=== PATIENT | male | born 1985 | race Caucasian/White ===

== ENCOUNTER 2018-01-29 08:23 | Emergency (ER) | payer SELFPAY ==
[2018-01-29 08:34] VITALS: BP 120/81
--- NOTE | 2018-01-29 08:38 | UC ---
Upper Extremity HPI - HPI Summary HPI Summary: 33 y/o male presents to Urgent Care c/o acute on chronic L wrist swelling with severe pain, worse this morning when the pt woke up. Pain aggravated with movement. Pain rated 8/10 in severity. Pt states the swelling has come and gone intermittently for the past few years. 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 This is scribe Ed Jeny documenting for attending Dr. Junior Agudelo. I, Dr. Painter, personally performed the services described in this documentation as scribed in my presence and it is both accurate and complete. - History of Current Complaint Chief Complaint: UCUpperExtremity Stated Complaint: L WRIST PAIN Hx Obtained From: Patient Onset/Duration: Sudden Onset, Lasting Hours, Still Present Pain Intensity: 8 Pain Scale Used: 0-10 Numeric Location Of Pain: Is Discrete @ - L wrist Aggravating Factor(s): Movement Alleviating Factor(s): Nothing Associated Signs And Symptoms: Positive: Swelling - Allergies/Home Medications Allergies/Adverse Reactions: Allergies Allergy/AdvReac Type Severity Reaction Status Date / Time No Known Allergies Allergy Verified 01/29/18 08:34 Home Medications: Home Medications NK [No Home Medications Reported] 01/29/18 [History Confirmed 01/29/18] PMH/Surg Hx/FS Hx/Imm Hx Previously Healthy: Yes Endocrine History: Other Other Endocrine History: Negative: DM Cardiovascular History: Other Other Cardiovascular History: Negative: MT - Surgical History Surgical History: None - Family History Known Family History: Positive: None - Social History Occupation: Employed Full-time Alcohol Use: None Substance Use Type: Marijuana Smoking Status (MU): Never Smoked Tobacco Review of Systems Constitutional: Negative Skin: Negative Eyes: Negative ENT: Negative Respiratory: Negative Cardiovascular: Negative Gastrointestinal: Negative Genitourinary: Negative Motor: Negative Neurovascular: Negative Musculoskeletal: Edema - with pain at L wrist Neurological: Negative Psychological: Negative All Other Systems Reviewed And Are Negative: Yes Physical Exam Triage Information Reviewed: Yes Appearance: Well-Appearing, No Pain Distress Vital Signs: Initial Vital Signs Temp 97.9 F 01/29/18 08:30 Pulse 69 01/29/18 08:30 Resp 16 01/29/18 08:30 BP 120/81 01/29/18 08:30 Pulse Ox 99 01/29/18 08:30 Vital Signs Reviewed: Yes ENT: Positive: Normal ENT inspection Neck: Positive: Supple, Nontender Respiratory: Positive: Lungs clear, Normal breath sounds Cardiovascular: Positive: RRR Abdomen Description: Positive: Nontender, Soft Bowel Sounds: Positive: Present Musculoskeletal: Positive: Strength Intact, ROM Intact, Edema @ - At the dorsum of the L wrist there is a subcutaneous swelling; it is rubbery in texture and mobile. It moves with the movement of the tendon. No erythema. TTP. Strength 5/ 5. No neurovascular deficits. Neurological: Positive: Alert Psychological: Positive: Age Appropriate Behavior Skin Exam: Normal Diagnostics - Radiology Wrist XR Radiology Interpretation Completed By: Radiologist - SOFT TISSUE SWELLING DORSAL TO THE CARPAL BONES. Re-Evaluation - Re-Evaluation 1 Re-Evaluation Time: 09:30 Comment: discuss XR results, plan of care Upper Extremity Course/Dx - Course Course Of Treatment: DISCUSSED X-RAY RESULTS WITH THE PATIENT. F/U ORTHOPEDICS. - Differential Dx/Diagnosis Provider Diagnoses: LEFT WRIST GANGLION CYST Discharge - Sign-Out/Discharge Documenting (check all that apply): Patient Departure - Discharge Plan Condition: Stable Disposition: HOME Patient Education Materials: Ganglion Cysts (ED), Ganglion Cyst Removal (DC) Forms: *Work Release Referrals: [facility] [Outside] [facility] [Outside] Kyra Fair MD [Medical Doctor] - Additional Instructions: FOLLOW UP WITH DR FAIR, ORTHOPEDICS. GET RECHECKED FOR ANY WORSENING OF YOUR CONDITION OR QUESTIONS OR CONCERNS. - Billing Disposition and Condition Condition: STABLE Disposition: Home
[2018-01-29] MEDS ORDERED: Ibuprofen TAB* 600 MG PO ONE (08:41)
--- NOTE | 2018-01-29 09:09 | RAD ---
INDICATION: Left wrist pain and swelling. TECHNIQUE: 3 views of the left wrist were obtained. FINDINGS: There is soft tissue swelling dorsal to the carpal bones. The bones are in normal alignment. No fracture is seen. Joint spaces appear maintained. IMPRESSION: SOFT TISSUE SWELLING DORSAL TO THE CARPAL BONES.
== END 2018-01-29 09:45 | disposition home or self-care (01) ==
LOC: UCEAST 08:23
DX: M67.432 Ganglion, left wrist (principal)
CPT/HCPCS: 99202; A9270-GY; G0463

== ENCOUNTER 2019-09-02 16:12 | Emergency (ER) | payer OTHER ==
[2019-09-02 17:09] VITALS: BP 132/78
== END 2019-09-02 17:30 | disposition home or self-care (01) ==
LOC: UCEAST 16:12

== ENCOUNTER 2020-02-21 14:57 | Inpatient (IN) ==
[2020-02-21 16:55] LABS: ABS Eosinophils 0.1 10^3/ul (0-0.6); ABS Lymphocytes 1.1 10^3/ul (1.0-4.8); ABS Monocytes 0.9 10^3/ul (0-0.8); ABS Neutrophils 9.8 10^3/ul (1.5-7.7); Eosinophil % 1.1 %; Hematocrit 48 % (42-52); Hemoglobin 16.1 g/dL (14.0-18.0); Mean Corpuscular HGB Conc 34 g/dL (31-36); Mean Corpuscular Hemoglobin 29 pg (27-31); Mean Corpuscular Volume 85 fL (80-94); Mean Platelet Volume 9.3 fL (7.4-10.4); Platelet Count 218 10^3/uL (150-450); Red Blood Count 5.59 10^6 /uL (4.18-5.48); Red Cell Distribution Width 14 % (10-15)
[2020-02-21 17:08] LABS: ALT 56 U/L (7-52); AST 36 U/L (13-39); Albumin 4.3 g/dL (3.2-5.2); Albumin/Globulin Ratio 1.4 (1-3); Alkaline Phosphatase 82 U/L (34-104); Anion Gap 9 mmol/L (2-11); BUN/Creatinine Ratio 17.8 (8-20); Blood Urea Nitrogen 19 mg/dL (6-24); C Reactive Protein 17.25 mg/L (<8.01); CO2 Carbon Dioxide 21 mmol/L (22-32); Calcium 9.3 mg/dL (8.6-10.3); Chloride 105 mmol/L (101-111); EGFR African American 96.3 (>60); EGFR Non-African American 79.6 (>60); Globulin 3.1 g/dL (2-4); Glucose 113 mg/dL (70-100); Lipase < 10 U/L (11.0-82.0); Potassium 4.2 mmol/L (3.5-5.0); Sodium 135 mmol/L (135-145); Total Protein 7.4 g/dL (6.4-8.9)
[2020-02-21 17:15] LABS: Troponin I 0.15 ng/mL (<0.03)
[2020-02-21] MEDS ORDERED: Iohexol 300 (CONTRAST) 10 ML SDV IV ONE (18:02)
[2020-02-21] MEDS ORDERED: Iohexol 350 (CONTRAST) 500 ML MDV IV ONE (19:01)
[2020-02-21 20:05] LABS: Troponin I 0.16 ng/mL (<0.03)
[2020-02-21] MEDS ORDERED: HYDROmorphone 1 MG/1 ML SYRINGE IV SLOW PU ONE (20:39)
[2020-02-21 20:57] LABS: Urine Appearance Clear; Urine Bilirubin Negative (Negative); Urine Blood 1+ (Negative); Urine Color Yellow; Urine Glucose Negative (Negative); Urine Ketones 1+ (Negative); Urine Nitrite Negative (Negative); Urine Protein 2+(100 mg/dL) (Negative); Urine Specific Gravity 1.058 (1.010-1.030); Urine Urobilinogen Negative (Negative)
[2020-02-21 21:02] LABS: Urine Bacteria Absent (Absent); Urine Red Blood Cell 2+(6-10/hpf) (Absent); Urine Squamous Epithelial Cell Present (Absent); Urine White Blood Cell 1+(6-10/hpf) (Absent)
[2020-02-21 21:02] LABS: INR 1.12 (0.82-1.09)
[2020-02-21] MEDS: Heparin 5000 UNITS/ML 1 mL VIAL IV SCH (21:13)
[2020-02-21] MEDS: Heparin DRIP 25,000 UNITS BAG 25,000 UNITS/500 ML BAG IV SCH (21:18)
[2020-02-21] MEDS ORDERED: Morphine 2 MG/ML SYRINGE IV PRN (22:01)
[2020-02-21 22:05] LABS: ABS Basophils 0.1 10^3/ul (0-0.2); ABS Eosinophils 0.2 10^3/ul (0-0.6); ABS Lymphocytes 1.1 10^3/ul (1.0-4.8); ABS Monocytes 1.2 10^3/ul (0-0.8); ABS Neutrophils 10.9 10^3/ul (1.5-7.7); Eosinophil % 1.8 %; Hematocrit 46 % (42-52); Hemoglobin 15.4 g/dL (14.0-18.0); Lymphocyte % 8.4 %; Mean Corpuscular HGB Conc 34 g/dL (31-36); Mean Corpuscular Hemoglobin 28 pg (27-31); Mean Corpuscular Volume 85 fL (80-94); Mean Platelet Volume 8.9 fL (7.4-10.4); Nucleated Red Blood Cells % 0.1; Platelet Count 213 10^3/uL (150-450); Red Blood Count 5.42 10^6 /uL (4.18-5.48); Red Cell Distribution Width 14 % (10-15); White Blood Count 13.5 10^3/uL (3.5-10.8)
[2020-02-21] MEDS ORDERED: NS 0.9% 1000 ml BAG 1,000 ML IV SCH (22:15)
[2020-02-21 22:32] LABS: Blood Urea Nitrogen 15 mg/dL (6-24); EGFR African American 111.8 (>60); EGFR Non-African American 92.4 (>60)
[2020-02-22 00:35] LABS: Troponin I 0.15 ng/mL (<0.03)
[2020-02-22] MEDS: oxyCODONE/Acetamin 5/325 mg TAB PO PRN ×2 (01:26→08:41)
[2020-02-22] MEDS ORDERED: HYDROmorphone 1 MG/1 ML SYRINGE IV SLOW PU PRN (01:27)
[2020-02-22] MEDS ORDERED: HYDROmorphone 1 MG/1 ML SYRINGE ONE (01:31)
[2020-02-22 05:56] LABS: ABS Basophils 0.1 10^3/ul (0-0.2); ABS Eosinophils 0.3 10^3/ul (0-0.6); ABS Lymphocytes 1.1 10^3/ul (1.0-4.8); Eosinophil % 2.2 %; Hematocrit 44 % (42-52); Hemoglobin 14.7 g/dL (14.0-18.0); Lymphocyte % 9.8 %; Mean Corpuscular HGB Conc 34 g/dL (31-36); Mean Corpuscular Hemoglobin 29 pg (27-31); Mean Corpuscular Volume 86 fL (80-94); Mean Platelet Volume 8.9 fL (7.4-10.4); Nucleated Red Blood Cells % 0.1; Platelet Count 199 10^3/uL (150-450); Red Cell Distribution Width 14 % (10-15); White Blood Count 11.5 10^3/uL (3.5-10.8)
[2020-02-22 06:16] LABS: BUN/Creatinine Ratio 12.7 (8-20); EGFR African American 93.3 (>60); EGFR Non-African American 77.1 (>60); Potassium 4.1 mmol/L (3.5-5.0)
[2020-02-22] MEDS: Heparin 5000 UNITS/ML 1 mL VIAL IV SCH ×2 (06:27→19:30)
[2020-02-22] MEDS ORDERED: Perflutren Lipid Microsphere 3 ML VIAL ONE (08:05)
[2020-02-22] MEDS ORDERED: Warfarin per PHARMACY **NOTE FOLLOW UP SCH (19:00)
[2020-02-23 02:19] LABS: Activated Partial Thrombo Time 77.4 seconds (26.0-38.0); INR 1.09 (0.82-1.09)
[2020-02-23 06:28] LABS: Hematocrit 42 % (42-52); Hemoglobin 14.3 g/dL (14.0-18.0); Mean Corpuscular HGB Conc 34 g/dL (31-36); Mean Corpuscular Hemoglobin 29 pg (27-31); Mean Corpuscular Volume 85 fL (80-94); Mean Platelet Volume 9.7 fL (7.4-10.4); Platelet Count 188 10^3/uL (150-450); Red Blood Count 4.96 10^6 /uL (4.18-5.48); Red Cell Distribution Width 14 % (10-15); White Blood Count 13.4 10^3/uL (3.5-10.8)
[2020-02-23 06:32] LABS: Potassium 4.2 mmol/L (3.5-5.0)
[2020-02-23 06:37] LABS: BUN/Creatinine Ratio 16.5 (8-20); EGFR African American 107.9 (>60); EGFR Non-African American 89.1 (>60)
[2020-02-23] MEDS: Heparin 5000 UNITS/ML 1 mL VIAL IV SCH (11:14)
[2020-02-23 15:57] LABS: Act Protein C Resist Ratio 3.2 (>or=2.3)
[2020-02-23] MEDS: Warfarin DAILY REMINDER **NOTE FOLLOW UP SCH (17:11)
[2020-02-23] MEDS: Heparin DRIP 25,000 UNITS BAG 25,000 UNITS/500 ML BAG IV SCH (17:52)
[2020-02-24] MEDS: Heparin DRIP 25,000 UNITS BAG 25,000 UNITS/500 ML BAG IV SCH ×2 (06:42→20:08)
[2020-02-24 06:50] LABS: INR 1.45 (0.82-1.09)
[2020-02-24 15:59] LABS: Hematocrit 42 % (42-52); Hemoglobin 14.1 g/dL (14.0-18.0); Mean Corpuscular HGB Conc 34 g/dL (31-36); Mean Corpuscular Hemoglobin 29 pg (27-31); Mean Corpuscular Volume 84 fL (80-94); Mean Platelet Volume 8.6 fL (7.4-10.4); Platelet Count 218 10^3/uL (150-450); Red Blood Count 4.96 10^6 /uL (4.18-5.48); Red Cell Distribution Width 14 % (10-15); White Blood Count 9.6 10^3/uL (3.5-10.8)
[2020-02-24 16:13] LABS: DRVVT Screen Ratio 0.95 ratio (<1.20); LAC APTT 144 sec (25 - 37); LAC INR 1.2 (0.9-1.1); Prothrombin Time(LAC) 13.6 sec (9.4 - 12.5)
[2020-02-24 16:39] LABS: Thrombin Time (Bovine), P >300.0 sec
[2020-02-24 16:45] LABS: Reptilase Time, P 18.4 sec
[2020-02-24] MEDS: Warfarin DAILY REMINDER **NOTE FOLLOW UP SCH (17:16)
[2020-02-24 21:13] LABS: Phospholipid Ab IgG < 9.4 GPL; Phospholipid Ab IgM, S < 9.4 MPL
[2020-02-25 06:23] LABS: ABS Basophils 0.1 10^3/ul (0-0.2); ABS Eosinophils 0.4 10^3/ul (0-0.6); ABS Lymphocytes 0.9 10^3/ul (1.0-4.8); ABS Neutrophils 6.9 10^3/ul (1.5-7.7); Eosinophil % 4.5 %; Hematocrit 42 % (42-52); Hemoglobin 13.9 g/dL (14.0-18.0); Lymphocyte % 10.1 %; Mean Corpuscular HGB Conc 33 g/dL (31-36); Mean Corpuscular Hemoglobin 28 pg (27-31); Mean Corpuscular Volume 85 fL (80-94); Platelet Count 226 10^3/uL (150-450); Red Blood Count 4.92 10^6 /uL (4.18-5.48); Red Cell Distribution Width 14 % (10-15); White Blood Count 9.4 10^3/uL (3.5-10.8)
[2020-02-25 06:24] LABS: INR 1.68 (0.82-1.09)
[2020-02-25 06:37] LABS: BUN/Creatinine Ratio 16.8 (8-20); Calcium 8.9 mg/dL (8.6-10.3); EGFR African American 110.5 (>60); EGFR Non-African American 91.3 (>60); Potassium 4.2 mmol/L (3.5-5.0)
[2020-02-25] MEDS: Heparin DRIP 25,000 UNITS BAG 25,000 UNITS/500 ML BAG IV SCH ×2 (08:31→21:48)
[2020-02-25 13:44] LABS: Beta 2 Glycoprotein IgG <9.4 U/mL
[2020-02-25] MEDS: Warfarin DAILY REMINDER **NOTE FOLLOW UP SCH (17:10)
[2020-02-26 06:11] LABS: Hematocrit 41 % (42-52); Hemoglobin 14.1 g/dL (14.0-18.0); Mean Corpuscular HGB Conc 34 g/dL (31-36); Mean Corpuscular Hemoglobin 29 pg (27-31); Mean Corpuscular Volume 84 fL (80-94); Mean Platelet Volume 8.5 fL (7.4-10.4); Platelet Count 252 10^3/uL (150-450); Red Cell Distribution Width 14 % (10-15); White Blood Count 8.9 10^3/uL (3.5-10.8)
[2020-02-26 06:19] LABS: INR 1.91 (0.82-1.09)
[2020-02-26] MEDS: Heparin DRIP 25,000 UNITS BAG 25,000 UNITS/500 ML BAG IV SCH (12:22)
[2020-02-26] MEDS: Warfarin DAILY REMINDER **NOTE FOLLOW UP SCH (17:19)
[2020-02-27] MEDS: Heparin DRIP 25,000 UNITS BAG 25,000 UNITS/500 ML BAG IV SCH ×2 (01:41→15:41)
[2020-02-27 04:58] LABS: Hematocrit 41 % (42-52); Hemoglobin 14.3 g/dL (14.0-18.0); Mean Corpuscular HGB Conc 35 g/dL (31-36); Mean Corpuscular Hemoglobin 29 pg (27-31); Mean Corpuscular Volume 84 fL (80-94); Mean Platelet Volume 8.2 fL (7.4-10.4); Platelet Count 261 10^3/uL (150-450); Red Blood Count 4.91 10^6 /uL (4.18-5.48); Red Cell Distribution Width 14 % (10-15); White Blood Count 9.3 10^3/uL (3.5-10.8)
[2020-02-27 05:18] LABS: INR 2.06 (0.82-1.09)
[2020-02-27 08:06] LABS: Folate 14.59 ng/mL (>3.99)
[2020-02-27] MEDS: Warfarin DAILY REMINDER **NOTE FOLLOW UP SCH (17:59)
[2020-02-28] MEDS: Heparin DRIP 25,000 UNITS BAG 25,000 UNITS/500 ML BAG IV SCH (04:16)
[2020-02-28 06:53] LABS: Activated Partial Thrombo Time 70.6 seconds (26.0-38.0); INR 2.31 (0.82-1.09)
[2020-02-28 07:23] LABS: Hematocrit 41 % (42-52); Mean Corpuscular HGB Conc 35 g/dL (31-36); Mean Corpuscular Hemoglobin 29 pg (27-31); Mean Corpuscular Volume 84 fL (80-94); Mean Platelet Volume 8.6 fL (7.4-10.4); Platelet Count 251 10^3/uL (150-450); Red Blood Count 4.83 10^6 /uL (4.18-5.48); Red Cell Distribution Width 14 % (10-15)
[2020-02-28 11:44] VITALS: BP 122/81
[2020-02-28 15:23] LABS: Prothrombin 20210 Mutation Negative (Negative)
== END 2020-02-28 17:56 | disposition home or self-care (01) | DRG 175 ==
LOC: ED 14:57 → MEDTELE 22:01 → ICU 02-22 01:14 → MEDTELE 02-23 21:43
PROVIDERS: ADMIT Internal Medicine; ATTEND Internal Medicine

== ENCOUNTER 2021-09-23 15:49 | Inpatient (IN) ==
[2021-09-23 17:01] LABS: ABS Basophils 0.1 10^3/ul (0-0.2); ABS Eosinophils 0.2 10^3/ul (0-0.6); ABS Lymphocytes 1.2 10^3/ul (1.0-4.8); ABS Monocytes 0.8 10^3/ul (0-0.8); ABS Neutrophils 7.3 10^3/ul (1.5-7.7); Eosinophil % 2.1 %; Hematocrit 49 % (42-52); Hemoglobin 16.3 g/dL (14.0-18.0); Lymphocyte % 12.2 %; Mean Corpuscular HGB Conc 33 g/dL (31-36); Mean Corpuscular Hemoglobin 29 pg (27-31); Mean Corpuscular Volume 87 fL (80-94); Mean Platelet Volume 9.1 fL (7.4-10.4); Platelet Count 215 10^3/uL (150-450); Red Cell Distribution Width 14 % (10-15); White Blood Count 9.5 10^3/uL (3.5-10.8)
[2021-09-23 17:06] LABS: INR 1.16 (0.86-1.15)
[2021-09-23 17:21] LABS: Albumin 4.1 g/dL (3.2-5.2); Albumin/Globulin Ratio 1.4 (1-3); Calcium 9.1 mg/dL (8.6-10.3); Potassium 4.1 mmol/L (3.5-5.0); Total Bilirubin 0.9 mg/dL (0.2-1.0); Total Protein 7.1 g/dL (6.4-8.9); eGFR CKD-EPI 92.3 (>60)
[2021-09-23] MEDS ORDERED: Iodixanol (CONTRAST) 320 MG/ML 100 ML SDV IV ONE (17:28)
[2021-09-23 19:25] LABS: High Sensitivity Troponin 1 Hr 3178 pg/mL (<20)
[2021-09-23] MEDS ORDERED: Heparin 5000 UNITS/ML 1 mL VIAL IV SCH (22:00)
[2021-09-23] MEDS: Heparin DRIP 25,000 UNITS BAG 25,000 UNITS/500 ML BAG IV SCH (22:36)
[2021-09-23] MEDS ORDERED: Warfarin per PHARMACY **NOTE FOLLOW UP SCH (23:45)
[2021-09-24 03:47] LABS: ABS Basophils 0.1 10^3/ul (0-0.2); ABS Eosinophils 0.3 10^3/ul (0-0.6); ABS Lymphocytes 1.3 10^3/ul (1.0-4.8); ABS Monocytes 0.8 10^3/ul (0-0.8); ABS Neutrophils 6.7 10^3/ul (1.5-7.7); Eosinophil % 2.8 %; Hematocrit 47 % (42-52); Hemoglobin 15.8 g/dL (14.0-18.0); Lymphocyte % 13.9 %; Mean Corpuscular HGB Conc 34 g/dL (31-36); Mean Corpuscular Hemoglobin 29 pg (27-31); Mean Corpuscular Volume 88 fL (80-94); Mean Platelet Volume 9.1 fL (7.4-10.4); Nucleated Red Blood Cells % 0.1; Platelet Count 191 10^3/uL (150-450); Red Cell Distribution Width 14 % (10-15); White Blood Count 9.2 10^3/uL (3.5-10.8)
[2021-09-24 04:08] LABS: INR 1.27 (0.86-1.15)
[2021-09-24 04:12] LABS: Activated Partial Thrombo Time 151.5 seconds (26.0-38.0)
[2021-09-24 04:45] LABS: Calcium 8.8 mg/dL (8.6-10.3)
[2021-09-24 04:51] LABS: HDL Cholesterol 33.9 mg/dL; eGFR CKD-EPI 103.8 (>60)
[2021-09-24 09:35] LABS: PCO2 Arterial 34 mmHg (35-45); PO2 Arterial 69 mmHg (80-100)
[2021-09-24] MEDS ORDERED: Perflutren Lipid Microsphere 3 ML VIAL ONE (12:56)
[2021-09-24] MEDS: Heparin DRIP 25,000 UNITS BAG 25,000 UNITS/500 ML BAG IV SCH (15:36)
[2021-09-24] MEDS ORDERED: Warfarin DAILY REMINDER **NOTE FOLLOW UP SCH (17:00)
[2021-09-25 06:17] LABS: PCO2 Arterial 42 mmHg (35-45); PO2 Arterial 84 mmHg (80-100)
[2021-09-25 07:13] LABS: ABS Basophils 0.1 10^3/ul (0-0.2); ABS Eosinophils 0.2 10^3/ul (0-0.6); ABS Lymphocytes 0.9 10^3/ul (1.0-4.8); ABS Monocytes 0.7 10^3/ul (0-0.8); ABS Neutrophils 5.6 10^3/ul (1.5-7.7); Eosinophil % 3.3 %; Hematocrit 46 % (42-52); Hemoglobin 15.8 g/dL (14.0-18.0); Mean Corpuscular HGB Conc 35 g/dL (31-36); Mean Corpuscular Hemoglobin 30 pg (27-31); Mean Corpuscular Volume 87 fL (80-94); Mean Platelet Volume 8.8 fL (7.4-10.4); Nucleated Red Blood Cells % 0.1; Platelet Count 188 10^3/uL (150-450); Red Blood Count 5.24 10^6 /uL (4.18-5.48); Red Cell Distribution Width 14 % (10-15); White Blood Count 7.5 10^3/uL (3.5-10.8)
[2021-09-25 07:23] LABS: INR 1.41 (0.86-1.15)
[2021-09-25] MEDS: Heparin DRIP 25,000 UNITS BAG 25,000 UNITS/500 ML BAG IV SCH (07:27)
[2021-09-25 07:49] LABS: Calcium 8.8 mg/dL (8.6-10.3); Potassium 4.4 mmol/L (3.5-5.0); eGFR CKD-EPI 119.5 (>60)
[2021-09-25] MEDS ORDERED: Lactated Ringers 1000 ml BAG 500 ML IV ONE (14:00)
[2021-09-25] MEDS ORDERED: Heparin DRIP 25,000 UNITS BAG 25,000 UNITS/500 ML BAG IV SCH (14:06)
[2021-09-25] MEDS ORDERED: Alteplase for catheter directed thrombolysis infusion ICU (0.02 mg/mL) SCH (15:00)
[2021-09-25] MEDS ORDERED: Midazolam 5 mg/5 ml VIAL 1 mg/ml 5 ml VIAL (5 mg) ONE (15:39)
[2021-09-25] MEDS ORDERED: Lidocaine 1% MPF 5 ML VIAL ONE (15:39)
[2021-09-25] MEDS ORDERED: Heparin 2 UNITS/ML IVPREMIX 2,000 UNIT/1,000 ML BAG IV ONE (15:39)
[2021-09-25] MEDS ORDERED: fentaNYL 100 mcg/2 ml 50 MCG/ML VIAL ONE (15:39)
[2021-09-25] MEDS ORDERED: Iohexol 350 (CONTRAST) 200 ML MDV IV ONE ×2 (15:41→16:29)
[2021-09-25] MEDS ORDERED: Lidocaine 1% VIAL 10 MG/ML VIAL ONE (16:11)
[2021-09-25] MEDS ORDERED: Heparin 2 UNITS/ML IVPREMIX 1,000 UNIT/500 ML BAG IV ONE (16:20)
[2021-09-25] MEDS ORDERED: Heparin 1,000 UNIT/ML 10 ml (10,000 UNITS) CATHLAB/DIALYSIS ONE (16:22)
[2021-09-26 05:41] LABS: ABS Basophils 0.1 10^3/ul (0-0.2); ABS Eosinophils 0.2 10^3/ul (0-0.6); ABS Lymphocytes 0.9 10^3/ul (1.0-4.8); ABS Monocytes 0.7 10^3/ul (0-0.8); ABS Neutrophils 5.9 10^3/ul (1.5-7.7); Eosinophil % 2.8 %; Hematocrit 48 % (42-52); Hemoglobin 16.3 g/dL (14.0-18.0); Lymphocyte % 11.1 %; Mean Corpuscular HGB Conc 34 g/dL (31-36); Mean Corpuscular Hemoglobin 30 pg (27-31); Mean Corpuscular Volume 87 fL (80-94); Mean Platelet Volume 8.9 fL (7.4-10.4); Platelet Count 182 10^3/uL (150-450); Red Blood Count 5.49 10^6 /uL (4.18-5.48); Red Cell Distribution Width 14 % (10-15); White Blood Count 7.8 10^3/uL (3.5-10.8)
[2021-09-26] MEDS ORDERED: Ondansetron 4 mg VIAL 2 MG/ML 2 ml VIAL IV PRN (05:54)
[2021-09-26 06:59] LABS: Calcium 8.7 mg/dL (8.6-10.3); Magnesium 1.6 mg/dL (1.9-2.7); Potassium 4.3 mmol/L (3.5-5.0)
[2021-09-26] MEDS ORDERED: Magnesium Sulf 4 GM/100 ML IV 4,000 MG/100 ML BAG IVPB ONE (07:01)
[2021-09-26 07:04] LABS: Phosphorus 3.4 mg/dL (2.5-5.0); eGFR CKD-EPI 116.1 (>60)
[2021-09-26] MEDS ORDERED: Heparin DRIP 25,000 UNITS BAG 25,000 UNITS/500 ML BAG IV SCH ×2 (07:36→09:00)
[2021-09-26] MEDS ORDERED: Heparin 5000 UNITS/ML 1 mL VIAL IV SCH (09:00)
[2021-09-26] MEDS: Heparin DRIP 25,000 UNITS BAG 25,000 UNITS/500 ML BAG IV SCH (09:38)
[2021-09-26] MEDS ORDERED: Heparin 2 UNITS/ML IVPREMIX 2,000 UNIT/1,000 ML BAG IV ONE (12:25)
[2021-09-26] MEDS ORDERED: Iohexol 350 (CONTRAST) 200 ML MDV IV ONE ×2 (12:25→12:38)
[2021-09-26] MEDS ORDERED: Heparin 2 UNITS/ML IVPREMIX 1,000 UNIT/500 ML BAG IV ONE (12:38)
[2021-09-26] MEDS ORDERED: fentaNYL 100 mcg/2 ml 50 MCG/ML VIAL ONE (13:14)
[2021-09-26 16:00] LABS: Activated Partial Thrombo Time 93.1 seconds (26.0-38.0); INR 1.39 (0.86-1.15)
[2021-09-27 04:48] LABS: ABS Basophils 0.1 10^3/ul (0-0.2); ABS Eosinophils 0.3 10^3/ul (0-0.6); ABS Monocytes 0.7 10^3/ul (0-0.8); Eosinophil % 3.9 %; Hematocrit 43 % (42-52); Hemoglobin 14.5 g/dL (14.0-18.0); Lymphocyte % 13.9 %; Mean Corpuscular HGB Conc 34 g/dL (31-36); Mean Corpuscular Hemoglobin 30 pg (27-31); Mean Corpuscular Volume 87 fL (80-94); Mean Platelet Volume 8.8 fL (7.4-10.4); Nucleated Red Blood Cells % 0.1; Platelet Count 180 10^3/uL (150-450); Red Blood Count 4.91 10^6 /uL (4.18-5.48); Red Cell Distribution Width 14 % (10-15); White Blood Count 7.1 10^3/uL (3.5-10.8)
[2021-09-27 05:07] LABS: Anion Gap 6 mmol/L (2-11); Blood Urea Nitrogen 10 mg/dL (6-24); CO2 Carbon Dioxide 26 mmol/L (22-32); Calcium 8.2 mg/dL (8.6-10.3); Chloride 104 mmol/L (101-111); Glucose 104 mg/dL (70-100); Phosphorus 4.4 mg/dL (2.5-5.0); Potassium 3.9 mmol/L (3.5-5.0); Sodium 136 mmol/L (135-145); eGFR CKD-EPI 93.4 (>60)
[2021-09-27] MEDS ORDERED: Furosemide 20 mg/2 ml IV VIAL IV SLOW PU ONE (08:38)
[2021-09-27 09:38] LABS: INR 1.37 (0.86-1.15)
[2021-09-27] MEDS ORDERED: Warfarin per PHARMACY **NOTE FOLLOW UP SCH (11:00)
[2021-09-27] MEDS: Heparin DRIP 25,000 UNITS BAG 25,000 UNITS/500 ML BAG IV SCH (16:12)
[2021-09-27 18:41] LABS: Folate 13.27 ng/mL (5.90-24.80)
[2021-09-27 18:42] LABS: Vitamin B12 > 1450 pg/mL (180-914)
[2021-09-28 03:22] LABS: ABS Basophils 0.1 10^3/ul (0-0.2); ABS Eosinophils 0.3 10^3/ul (0-0.6); ABS Lymphocytes 1.2 10^3/ul (1.0-4.8); ABS Monocytes 0.6 10^3/ul (0-0.8); ABS Neutrophils 4.6 10^3/ul (1.5-7.7); Eosinophil % 4.5 %; Hematocrit 46 % (42-52); Hemoglobin 15.7 g/dL (14.0-18.0); Lymphocyte % 17.7 %; Mean Corpuscular HGB Conc 34 g/dL (31-36); Mean Corpuscular Hemoglobin 30 pg (27-31); Mean Corpuscular Volume 87 fL (80-94); Mean Platelet Volume 8.7 fL (7.4-10.4); Nucleated Red Blood Cells % 0.1; Platelet Count 175 10^3/uL (150-450); Red Blood Count 5.27 10^6 /uL (4.18-5.48); Red Cell Distribution Width 14 % (10-15); White Blood Count 6.8 10^3/uL (3.5-10.8)
[2021-09-28 04:47] LABS: Calcium 8.9 mg/dL (8.6-10.3); Magnesium 1.8 mg/dL (1.9-2.7); Phosphorus 3.8 mg/dL (2.5-5.0); Potassium 4.3 mmol/L (3.5-5.0); eGFR CKD-EPI 117.8 (>60)
[2021-09-28 05:58] LABS: INR 1.35 (0.86-1.15)
[2021-09-28] MEDS ORDERED: Magnesium Sulfate 2 gm BAG 2 GM/50 ML BAG IVPB ONE (06:46)
[2021-09-28] MEDS: Warfarin DAILY REMINDER **NOTE FOLLOW UP SCH (17:15)
[2021-09-29] MEDS: Heparin DRIP 25,000 UNITS BAG 25,000 UNITS/500 ML BAG IV SCH ×2 (00:41→16:28)
[2021-09-29 06:45] LABS: Activated Partial Thrombo Time 77.8 seconds (26.0-38.0); INR 1.23 (0.86-1.15)
[2021-09-29 06:58] LABS: ABS Basophils 0.1 10^3/ul (0-0.2); ABS Eosinophils 0.4 10^3/ul (0-0.6); ABS Monocytes 0.6 10^3/ul (0-0.8); ABS Neutrophils 4.1 10^3/ul (1.5-7.7); Eosinophil % 5.9 %; Hematocrit 43 % (42-52); Hemoglobin 14.7 g/dL (14.0-18.0); Lymphocyte % 16.3 %; Mean Corpuscular HGB Conc 34 g/dL (31-36); Mean Corpuscular Hemoglobin 30 pg (27-31); Mean Corpuscular Volume 87 fL (80-94); Mean Platelet Volume 8.9 fL (7.4-10.4); Platelet Count 184 10^3/uL (150-450); Red Blood Count 4.95 10^6 /uL (4.18-5.48); Red Cell Distribution Width 14 % (10-15); White Blood Count 6.2 10^3/uL (3.5-10.8)
[2021-09-29 07:00] LABS: Calcium 8.8 mg/dL (8.6-10.3); Magnesium 1.8 mg/dL (1.9-2.7); Potassium 3.9 mmol/L (3.5-5.0); eGFR CKD-EPI 117.8 (>60)
[2021-09-29] MEDS ORDERED: Magnesium Sulfate IV 3 GM in NS 0.9% 100 ml BAG 100 ML IVPB ONE (07:27)
[2021-09-29] MEDS ORDERED: Magnesium Sulfate 2 GM IV (Premix) IVPB ONE (08:00)
[2021-09-29] MEDS ORDERED: Magnesium Sulfate 1 GM IV 1 GM/100 ML BAG IV ONE (09:00)
[2021-09-29] MEDS ORDERED: Furosemide 20 mg/2 ml IV VIAL IV ONE (09:18)
[2021-09-29] MEDS: Warfarin DAILY REMINDER **NOTE FOLLOW UP SCH (15:52)
[2021-09-30 07:40] LABS: INR 1.34 (0.86-1.15)
[2021-09-30] MEDS: Heparin DRIP 25,000 UNITS BAG 25,000 UNITS/500 ML BAG IV SCH (08:29)
[2021-09-30 08:40] LABS: Calcium 9.2 mg/dL (8.6-10.3); Potassium 4.2 mmol/L (3.5-5.0)
[2021-09-30 08:46] LABS: eGFR CKD-EPI 117.4 (>60)
[2021-09-30 10:33] LABS: Magnesium 1.9 mg/dL (1.9-2.7)
[2021-09-30] MEDS: Warfarin DAILY REMINDER **NOTE FOLLOW UP SCH (17:29)
[2021-10-01] MEDS: Heparin DRIP 25,000 UNITS BAG 25,000 UNITS/500 ML BAG IV SCH (03:48)
[2021-10-01 06:31] LABS: ABS Basophils 0.1 10^3/ul (0-0.2); ABS Eosinophils 0.4 10^3/ul (0-0.6); ABS Lymphocytes 1.1 10^3/ul (1.0-4.8); ABS Monocytes 0.6 10^3/ul (0-0.8); Eosinophil % 6.2 %; Hematocrit 43 % (42-52); Hemoglobin 14.6 g/dL (14.0-18.0); Lymphocyte % 17.9 %; Mean Corpuscular HGB Conc 34 g/dL (31-36); Mean Corpuscular Hemoglobin 30 pg (27-31); Mean Corpuscular Volume 88 fL (80-94); Mean Platelet Volume 8.6 fL (7.4-10.4); Platelet Count 194 10^3/uL (150-450); Red Blood Count 4.91 10^6 /uL (4.18-5.48); Red Cell Distribution Width 15 % (10-15); White Blood Count 6.3 10^3/uL (3.5-10.8)
[2021-10-01 06:42] LABS: Activated Partial Thrombo Time 49.1 seconds (26.0-38.0); INR 1.47 (0.86-1.15)
[2021-10-01 07:02] LABS: Calcium 9.2 mg/dL (8.6-10.3); Magnesium 1.7 mg/dL (1.9-2.7); Potassium 4.5 mmol/L (3.5-5.0)
[2021-10-01] MEDS ORDERED: Magnesium Sulfate IV 3 GM in NS 0.9% 100 ml BAG 100 ML IVPB ONE (07:05)
[2021-10-01] MEDS ORDERED: Magnesium Sulfate 2 GM IV (Premix) IVPB ONE (07:30)
[2021-10-01] MEDS ORDERED: Magnesium Sulfate 1 GM IV 1 GM/100 ML BAG IV ONE (08:30)
[2021-10-01] MEDS ORDERED: Iohexol 350 (CONTRAST) 500 ML MDV IV ONE (10:56)
[2021-10-01] MEDS: Warfarin DAILY REMINDER **NOTE FOLLOW UP SCH (17:30)
[2021-10-02] MEDS: Heparin DRIP 25,000 UNITS BAG 25,000 UNITS/500 ML BAG IV SCH ×2 (01:01→19:11)
[2021-10-02 04:36] LABS: Calcium 9.1 mg/dL (8.6-10.3); Magnesium 1.8 mg/dL (1.9-2.7); Potassium 4.4 mmol/L (3.5-5.0); eGFR CKD-EPI 116.5 (>60)
[2021-10-02 06:12] LABS: PCO2 Arterial 40 mmHg (35-45); PO2 Arterial 95 mmHg (80-100)
[2021-10-02] MEDS ORDERED: Magnesium Sulfate 2 gm BAG 2 GM/50 ML BAG IVPB ONE ×2 (06:57→07:04)
[2021-10-02 08:33] LABS: INR 1.74 (0.86-1.15)
[2021-10-02 14:51] LABS: 3 OH Dodecenoylcarnitine C12-O 0.01 nmol/mL (< 0.08); 3 OH Hexadecenoylcarnitine C16 0.01 nmol/mL (< 0.06); 3 OH Hexanolcarnitine C6-OH 0.02 nmol/mL (< 0.09); 3 OH Linoleylcarnitine C18:2-O <0.02 nmol/mL (< 0.06); 3 OH Oleylcarnitine C18:1-OH <0.01 nmol/mL (< 0.06); 3 OH Tetradecenoylcarnitine C1 0.01 nmol/mL (< 0.13); 3 OH iso butyrylcarnitin C4-OH 0.03 nmol/mL (<0.18); 3 OH isovalerylcarnitine C5-OH 0.03 nmol/mL (<0.10); 3-OH-Tetradecanoylcarnitine C1 0.01 nmol/mL (< 0.08); 3Methylglutarylcarnitine C6-DC 0.06 nmol/mL (<0.43); 3OH-decenoylcarnitine C10:1-OH 0.02 nmol/mL (<0.13); 3OHdodecenoylcarnitine C12:1OH 0.02 nmol/mL (<0.13); 3OHoctadecanoylcarnitine C18OH 0.01 nmol/mL (<0.03); Acetylcarnitine C2 5.46 nmol/mL (2.00-17.83); Acrylylcarnitine C3:1 <0.02 nmol/mL (<0.07); Decenoylcarnitine C10 0.13 nmol/mL (< 0.88); Decenoylcarnitine C10:1 0.14 nmol/mL (< 0.47); Dodecenoylcarnitine C12 0.06 nmol/mL (< 0.26); Dodecenoylcarnitine C12:1 0.03 nmol/mL (< 0.35); Glutarylcarnitine C5-DC 0.04 nmol/mL (< 0.11); Heptanoylcarnitine, C7 0.01 nmol/mL (<0.06); Hexadecanoylcarnitine C16 0.07 nmol/mL (< 0.23); Hexadecenoylcarnitine C16:1 0.03 nmol/mL (< 0.10); Hexanolcarnitine C6 0.05 nmol/mL (< 0.17); Iso Butyrylcarnitine C4 0.22 nmol/mL (< 0.83); Isovaleryl 2 Methylbutyrylcarn 0.23 nmol/mL (< 0.51); Linoleylcarnitine C18:2 0.05 nmol/mL (< 0.24); Methylmalonylcarnitine C4-DC 0.04 nmol/mL (<0.05); Octenoylcarnitine C8 0.28 nmol/mL (< 0.78); Octenoylcarnitine C8:1 0.51 nmol/mL (< 0.88); Oleylcarnitine C18:1 0.07 nmol/mL (< 0.39); Propionylcarnitine C3 0.68 nmol/mL (< 0.88); Stearoylcarnitine C18 0.03 nmol/mL (< 0.14); Tetradecadienoylcaraitine C14: 0.02 nmol/mL (< 0.18); Tetradecenoylcarnitine C14 0.02 nmol/mL (< 0.12); Tetradecenoylcarnitine C14:1 0.03 nmol/mL (< 0.24)
[2021-10-02] MEDS: Warfarin DAILY REMINDER **NOTE FOLLOW UP SCH (16:10)
[2021-10-02 18:06] LABS: 1 Methylhistidine 28 nmol/mL (<28); A-Aminoadipic Acid 1 nmol/mL (<3); B-Aminoisobutyric Acid 2 nmol/mL (<5); Gamma-amino-n-butyric 0 nmol/mL (<2)
[2021-10-03 07:30] LABS: INR 2.01 (0.86-1.15)
[2021-10-03 15:30] VITALS: BP 112/65
[2021-10-04 09:06] LABS: Methylmalonic Acid 0.25 nmol/mL (<=0.40)
== END 2021-10-03 16:45 | disposition home or self-care (01) | DRG 951 ==
LOC: ED 15:49 → EDHOLD 15:49 → OBSVTOIN 20:14 → SUATTDRO 20:14 → MEDTELE 09-24 02:26 → SUATTDRO 09-24 03:25 → MEDTELE 09-24 03:27 → ICU 09-25 08:35 → MED 09-27 23:01
PROVIDERS: ADMIT Hospitalist; ATTEND Internal Medicine